=== PATIENT | male | born 1960 | race American Indian/Alaskan Native ===

== ENCOUNTER 2018-08-19 10:42 | Outpatient (CLI) | payer BC | END 2018-08-19 10:43 | disposition home or self-care (01) | LOC: C.LAB 10:42 ==

== ENCOUNTER 2018-08-21 08:42 | Outpatient (CLI) | payer BC | END 2018-08-21 08:43 | disposition home or self-care (01) | LOC: C.LAB 08:42 ==

== ENCOUNTER 2018-09-21 09:43 | Outpatient (CLI) | payer BC | END 2018-09-21 09:45 | disposition home or self-care (01) | LOC: C.LAB 09:43 ==